=== PATIENT | female | born 1990 | race African-American/Black ===

== ENCOUNTER 2016-10-22 06:54 | Inpatient (IN) | payer OTHER ==
--- NOTE | 2016-10-21 16:49 | History & Physical ---
General Information and HPI MD Statement: I have seen and personally examined TARIK RNETERIA and documented this H&P. The patient is a 26 year old female at [39] weeks and [] days gestation who presented with a chief complaint of [repeat ]. Source of Information: police History of Present Illness: This patient is a 26-year-old 3 para 2 LMP 01/22/2016 EDC 10/28/2016 at 39 weeks and 1 day who presents to labor and delivery for planned elective repeat section. She has a history of previous 2. care this has been complete and remarkable for sickle trait and Rh negativity receiving RhoGAM on 08/26/2016. At the patient's initial visit she had a positive urine toxicology screen for cannabis she had a repeat toxicology screen which was negative on 10/19/2016. 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 EENTM: Reports: no symptoms. Cardiovascular: Reports: no symptoms. Respiratory: Reports: no symptoms. GI: Reports: diarrhea, nausea, vomiting. Genitourinary: Reports: no symptoms. Musculoskeletal: Reports: no symptoms. Skin: Reports: no symptoms. Neurological/Psychological: Reports: no symptoms. Hematologic/Endocrine: Reports: no symptoms. Immunologic/Allergic: Reports: no symptoms. All Other Systems: Reviewed and Negative Exam & Diagnostic Data Last 24 Hrs of Vital Signs/I&O Vital signs stable Obstetric Exam Wgt Gained During : 35 pounds Pelvimetry: Gynecoid Dilation (cm): 0 Effacement (%): 0 Station: -2 Membranes: intact Fluid: unknown Fundal Height (cm): 40 Multiple Gestation? No Contractions: Occasional #1 - FHR Baseline: 150 Category: 1 Estimated Weight: 7 pounds Presentation: Cephalic Patient for Induction? No Labs Blood Type & Rh: O- Antibody Screen: Negative Hct/Hgb & Platelets #1: 33, 11, 220 Hct/Hgb & Platelets #2: 32, 11, 237 Rubella: Immune VDRL #1: Nonreactive VDRL #2: Nonreactive HbsAg: Negative HIV #1: Negative HIV #2 Negative 1 Hr P Group B Strep: Negative Initial Ultrasound: Within normal limits Anatomy Ultrasound: Within normal limits Ultrasound for EFW: 6-1/2 pounds Genetic Testing: Negative Assessment/Plan Assessment/Plan: 39 week Previous 2 Plan: Repeat As Ranked By This Provider Problem List: 1. Previous section Core Measures/Miscellaneous Venous Thromboembolism VTE Risk Factors: /, Surgery VTE Contraindications: No Contraindications VTE Prophylaxis Ordered Inpt: Mech/Pharm Contraindicate VTE Diagnosis: No Beta Ja Is Beta Ja a Home Med? No Antibiotics Is Patient on Antibiotics? Yes
[~2016-10-22] VITALS: Ht 154.9 cm; Wt 81.6 kg
[~2016-10-22 06:54] MED LIST: ZOFRAN ODT4 M1 SL
[2016-10-22 07:22] VITALS: BP 101/62
[2016-10-22] MEDS ORDERED: TYLENOL EXTRA500 M2 PO (07:38)
[2016-10-22] MEDS ORDERED: PRENATAL VITAM1 EACH PO (07:39)
[2016-10-22] MEDS ORDERED: BENADRYL25 MG PO (07:40)
--- NOTE | 2016-10-22 09:30 | Labor & Delivery Summary ---
Delivery Summary Section: Section: 2 Indication: RPT Anesthesia: SPINAL Episiotomy/Lacerations: Episiotomy/Lacerations: none Placenta: Placenta: spontanteous, normal, 3 vessel Anesthesia: SPINAL Baby's Weight: 8/1 Apgars - 1 Min: 9 Apgars - 5 Min: 9 Additional Comments: THICK MECONIUM
[2016-10-22 13:32] LABS: ABSOLUTE BASOPHIL COUNT 0 /CUMM (0.0-0.2); ABSOLUTE EOSINOPHIL COUNT 0 /CUMM (0.0-0.7); ABSOLUTE GRANULOCYTE CT 8.6 /CUMM (1.4-6.5); ABSOLUTE LYMPH COUNT 0.5 /CUMM (1.2-3.4); ABSOLUTE MONOCYTE COUNT 0.3 /CUMM (0.10-0.60); BASOPHIL % 0 % (0.0-2.0); EOSINOPHIL % 0 % (0-5); GRANULOCYTE % 91.3 % (42.2-75.2); HEMATOCRIT 34.4 % (37-47); MEAN CORPUSCULAR HGB 31.2 PG (27.0-31.0); MEAN CORPUSCULAR HGB CONC 34.7 G/DL (33.0-37.0); MEAN PLATELET VOLUME 8.3 FL (7.4-10.4); PLATELET COUNT 172 /CUMM (130-400); RBC DISTRIBUTION WIDTH 13.8 % (11.5-14.5); RED BLOOD CELL CT 3.83 /CUMM (4.20-5.40); WHITE BLOOD CELL COUNT 9.5 /CUMM (4.8-10.8)
[2016-10-22 18:10] LABS: ABSOLUTE BASOPHIL COUNT 0 /CUMM (0.0-0.2); ABSOLUTE EOSINOPHIL COUNT 0 /CUMM (0.0-0.7); ABSOLUTE GRANULOCYTE CT 9.1 /CUMM (1.4-6.5); ABSOLUTE LYMPH COUNT 0.9 /CUMM (1.2-3.4); ABSOLUTE MONOCYTE COUNT 0.4 /CUMM (0.10-0.60); BASOPHIL % 0.1 % (0.0-2.0); EOSINOPHIL % 0 % (0-5); GRANULOCYTE % 87.1 % (42.2-75.2); MEAN CORPUSCULAR HGB 31.4 PG (27.0-31.0); MEAN CORPUSCULAR HGB CONC 34.1 G/DL (33.0-37.0); MEAN CORPUSCULAR VOLUME 92.1 FL (81.0-99.0); MEAN PLATELET VOLUME 7.9 FL (7.4-10.4); PLATELET COUNT 192 /CUMM (130-400); RBC DISTRIBUTION WIDTH 13.5 % (11.5-14.5); WHITE BLOOD CELL COUNT 10.4 /CUMM (4.8-10.8)
--- NOTE | 2016-10-22 18:39 | Operative Report ---
Operative/Inv Procedure Report Surgery Date: 10/22/16 Name of Procedure: Repeat section Pre-Operative Diagnosis: 39 week , previous 2 Post-Operative Diagnosis: Same Estimated Blood Loss: 650 mL Surgeon/Electrical Control Assembler: GABRIEL CARMONA MD,RAVEN Epstein M.D. Anesthesia: spinal Operative/Procedure Note Note: The patient was taken to the operating room and placed on the OR table in the sitting position where she underwent spinal anesthetic without complication. She was repositioned into dorsal supine with a block under her right, angling her onto her left. Venodyne boots were placed and activated. Braun catheter was placed in a sterile fashion and drained clear yellow urine. The abdomen was then prepped and draped in usual sterile fashion and tested. A Pfannenstiel skin incision was made with the scalpel through the old scar and taken down to the layer of the fascia. The fascia was nicked in the midline and extended bilaterally with electrocautery. The underlying rectus muscles are and the fascia was sharply dissected off. The peritoneal cavity was entered sharply. Bladder flap was created using the Metzenbaum scissors and placed behind a [place] bladder blade. The uterine wall was very thin and a window appeared. A low transverse uterine incision was made through the window and the membranes were absent ruptured and thick meconium fluid was noted. Liveborn male infant was delivered atraumatically and handed off to the waiting pediatricians. The placenta was then manually removed the uterus was exteriorized and cleaned with a wet lap sponge of all clot tissue and debris. The uterus was then closed in 2 layers the second imbricating the first of 0 Polysorb. There was an expanding hematoma on the left uterine lower segment and a [id number] suture was used here for good hemostasis. Pelvis and abdomen were copiously irrigated and the uterus was placed back into the abdominal cavity and the suture line was once again visualized as well as a hematoma on the left lower segment. Hemostasis appeared to be good. The fascia was then closed using 0 Polysorb in a running nonlocking fashion. Subcutaneous tissues were irrigated and coagulated where needed. The skin was closed using eunice dry sterile dressing was applied to the wound. Fundus was expressed patient was transferred to recovery room in satisfactory condition. All needle, sponge and instrument counts were correct at the end of the procedure 2.
[2016-10-22 22:04] LABS: ABSOLUTE BASOPHIL COUNT 0 /CUMM (0.0-0.2); ABSOLUTE EOSINOPHIL COUNT 0 /CUMM (0.0-0.7); ABSOLUTE GRANULOCYTE CT 7.7 /CUMM (1.4-6.5); ABSOLUTE LYMPH COUNT 1.3 /CUMM (1.2-3.4); ABSOLUTE MONOCYTE COUNT 0.5 /CUMM (0.10-0.60); BASOPHIL % 0.3 % (0.0-2.0); EOSINOPHIL % 0.2 % (0-5); GRANULOCYTE % 80.2 % (42.2-75.2); HEMATOCRIT 32.5 % (37-47); MEAN CORPUSCULAR HGB 30.9 PG (27.0-31.0); MEAN CORPUSCULAR HGB CONC 33.5 G/DL (33.0-37.0); MEAN CORPUSCULAR VOLUME 92.2 FL (81.0-99.0); PLATELET COUNT 187 /CUMM (130-400); RBC DISTRIBUTION WIDTH 13.4 % (11.5-14.5); RED BLOOD CELL CT 3.52 /CUMM (4.20-5.40); WHITE BLOOD CELL COUNT 9.6 /CUMM (4.8-10.8)
[2016-10-23 02:34] LABS: ABSOLUTE BASOPHIL COUNT 0 /CUMM (0.0-0.2); ABSOLUTE EOSINOPHIL COUNT 0.1 /CUMM (0.0-0.7); ABSOLUTE GRANULOCYTE CT 5.8 /CUMM (1.4-6.5); ABSOLUTE LYMPH COUNT 1.5 /CUMM (1.2-3.4); ABSOLUTE MONOCYTE COUNT 0.7 /CUMM (0.10-0.60); BASOPHIL % 0.3 % (0.0-2.0); EOSINOPHIL % 0.7 % (0-5); GRANULOCYTE % 71.6 % (42.2-75.2); HEMATOCRIT 30.9 % (37-47); MEAN CORPUSCULAR HGB 31.9 PG (27.0-31.0); MEAN CORPUSCULAR HGB CONC 34.6 G/DL (33.0-37.0); MEAN CORPUSCULAR VOLUME 92.1 FL (81.0-99.0); MEAN PLATELET VOLUME 8.1 FL (7.4-10.4); PLATELET COUNT 183 /CUMM (130-400); RBC DISTRIBUTION WIDTH 13.3 % (11.5-14.5); RED BLOOD CELL CT 3.35 /CUMM (4.20-5.40); WHITE BLOOD CELL COUNT 8.1 /CUMM (4.8-10.8)
--- NOTE | 2016-10-24 11:00 | PN- Post Delivery/GYN ---
Subjective Subjective: HEMORRHOID PAIN Review of Systems: NEG Objective Last 24 Hrs of Vital Signs/I&O VSS Physical Exam: INCISIOJN C/D/I EXT NT Assessment/Plan Assessment/Plan S/P POD2 STABLE DISCHARGE TOMORROW Problem List: 1. repeat c section
[2016-10-25] MEDS ORDERED: IBUPROFEN800 M1 PO (08:55)
[2016-10-25] MEDS ORDERED: PERCOCET 5-3251 EACH PO (08:55)
--- NOTE | 2016-11-06 12:32 | Surgical Discharge Summary ---
Visit Information Visit Dates Admission Date: 10/22/16 Discharge Date: 10/25/16 History of Present Illness Chief Complaint: Previous Medical History Neurological: NONE EENT: NONE Cardiovascular: NONE Respiratory: NONE Gastrointestinal: NONE Hepatic: NONE Renal: NONE Musculoskeletal: NONE Psychiatric: NONE Endocrine: NONE Blood Disorders: NONE Cancer(s): NONE Surgical History Pertinent Surgical History: (2), tonsillectomy Psychosocial History What is Your Primary Language? Chinese Review of Systems: Negative Hospital Course Course Attending Physician: RAVEN MASCORRO MD Primary Care Physician: PATIENT HAS NO PRIMARY CARE DR Hospital Course: The patient is brought in for repeat elective and underwent said procedure without complication. She was sent to recovery in good condition. Operative day 1 her Braun was discontinued her diet was advance her activity was increased. Postoperative day #2 the patient continued to do well and remained stable. On postoperative day #3 she was discharged on Allergies: Coded Allergies: morphine (HALLUCINATES 04/02/16) Uncoded Allergies: CAT HAIR EXTRACT (UNKNOWN 04/02/16) DOGS (UNKNOWN 09/02/11) Disposition Summary Disposition Principal Diagnosis: Previous Additional Diagnosis: Term Discharge Disposition: home or self care Discharge Instructions General Discharge Information Code Status: Full Code Patient's Diet: Regular Patient's Activity: Pelvic rest Follow-Up Instructions/Appts: 1 week Medications at Discharge Discharge Medications: Stop taking the following medications: Ondansetron (Zofran Odt) 4 MG TAB.RAPDIS SUBLINGUAL THREE TIMES DAILY Qty = 15 Diphenhydramine HCl (Benadryl) 25 MG CAPSULE ORAL Continue taking these medications: Acetaminophen (Tylenol Extra Strength) 500 MG TABLET 1 Tablet ORAL Vit W-Ca,Fe,FA(<1 MG) ( Vitamins) 1 EACH TABLET 1 Tablet ORAL Start taking the following new medications: Ibuprofen (Ibuprofen) 800 MG TABLET 800 Milligram ORAL EVERY SIX HOURS NEEDED as needed for UTERINE CRAMPING Qty = 30 No Refills Comments: Last Taken:10/25/16 Time:0500 Oxycodone HCl/Acetaminophen (Percocet 5-325 MG Tablet) 5 MG-325 MG TABLET 1 Tablet ORAL EVERY 4 HOURS NEEDED as needed for PAIN SCALE 4-6 (MODERATE ) Qty = 24 No Refills Comments: Last Taken:10/25/16 Time:0915
== END 2016-10-25 10:00 | DRG 540 ==
LOC: GNO 06:54
PROVIDERS: ADMIT Obstetrics & Gynecology
PROC: 10D00Z1 Extraction of Products of Conception, Low, Open Approach (ICD-10-PCS; principal; 2016-10-22)
DX: O34.211 Maternal care for low transverse scar from previous cesarean delivery (principal); N85.8 Other specified noninflammatory disorders of uterus; Z3A.39 39 weeks gestation of pregnancy; Z37.0 Single live birth
CPT/HCPCS: GNOS; 36415; 80307; 81001; 81003; 86920; 86922; 87086; 88307; 96360; G0463; J0131; J0690; J1885; J2210; J2405; J3101; J7120